=== PATIENT | female | born 1950 | race Caucasian/White ===

== ENCOUNTER 2018-10-28 09:14 | Day surgery (SDC) | payer BC ==
[~2018-10-28 09:14] MED LIST: Acetaminophen TAB* 325 MG PO PRN; Buffered Lidocaine 1% SYRIN* 1 ML/SYRINGE INTRADERM ONE
[2018-10-28] MEDS ORDERED: Midazolam* 1 MG/ML 2 ML VIAL (2 MG) ONE ×3 (10:14→10:59)
[2018-10-28 11:43] VITALS: BP 99/77
[2018-10-28] MEDS ORDERED: Povidone Iodine 5% OPTH* 30 ML BTL ONE (12:15)
[2018-10-28] MEDS ORDERED: Ketorolac 0.5% OPHTH (NF) 0.5 % 5 ML BTL ONE (12:15)
[2018-10-28] MEDS ORDERED: Proparacaine 0.5% OPHTH.SOL* 15 ML BTL ONE (12:15)
[2018-10-28] MEDS ORDERED: Neomycin/Polymy/Dex OPTH.SUSP* MAXITROL 0.1% 5 ML ONE (12:15)
[2018-10-28] MEDS ORDERED: Lidocaine 1%* 5 ML VIAL ONE (12:15)
[2018-10-28] MEDS ORDERED: Lidocaine 2% EPI 1:200000 MPF*10-20 ML VIAL ONE (12:15)
[2018-10-28] MEDS ORDERED: acetaZOLAMIDE TAB* 250 MG ONE (12:15)
[2018-10-28] MEDS ORDERED: Cyclopentolate 1% OPTH.SOL* 2 ML BTL ONE (12:15)
[2018-10-28] MEDS ORDERED: Phenylephrine 2.5% OPTH.SOL* 2 ML BTL ONE (12:15)
--- NOTE | 2018-10-28 13:17 | OP ---
DATE OF OPERATION: 10/28/2018. DATE OF : 1950. SURGEON: Tian Pena M.D. PREOPERATIVE DIAGNOSIS: Cataract right eye. POSTOPERATIVE DIAGNOSIS: Cataract right eye. OPERATIVE PROCEDURE: Extracapsular cataract extraction with intraocular lens implant right eye. PROCEDURE: The patient was brought to the operating room after being given 1/2% Alcaine with epineph rine drops in the preoperative area. The eye was prepped and draped in the usual sterile fashion. S terile drape and eyelid speculum were placed. Again, topical 1/2% Alcaine with epinephrine was given . A paracentesis incision was made at the 9 o'clock position with the No.75 blade. Clear cornea inc ision 2.2 x 2.2-mm was created at the 12 o'clock position starting at the anterior limbus using the 2 .2-mm keratome. The anterior chamber was irrigated with 0.4 mL of 1% non-preservative intracameral l idocaine and filled with DisCoVisc. A capsulorrhexis was completed using the cystotome and the Utrat a forceps. Hydrodissection was performed with balanced salt solution. The lens nucleus was removed w ith the Phacoemulsification handpiece without incident. Cortex was removed with the irrigation-aspir ation handpiece. The capsular bag was re-inflated using DisCoVisc and an SN60WF 22.5 implant was ins erted with the shooter. The irrigation-aspiration handpiece was used to remove all residual DisCoVis c. The eye was refilled with balanced salt solution and the wound checked and found to be watertight . Topical Maxitrol drops were given. [id number]/[facility] #: [id number]
== END 2018-10-28 11:36 | disposition home or self-care (01) ==
LOC: OREAST 09:14
PROVIDERS: ATTEND Specialist
DX: H25.11 Age-related nuclear cataract, right eye (principal); E03.9 Hypothyroidism, unspecified; G40.909 Epilepsy, unspecified, not intractable, without status epilepticus; F41.9 Anxiety disorder, unspecified
CPT/HCPCS: A9270-GY; J2250; V2632

== ENCOUNTER 2019-03-13 13:49 | Emergency (ER) | payer BC ==
[2019-03-13] MEDS ORDERED: Aspirin 81 mg CHEW TAB* 81 MG TAB.CHEW PO ONE (14:30)
--- NOTE | 2019-03-13 14:46 | ED ---
HPI Chest Pain - HPI Summary HPI Summary: This pt is a 68 y/o female presenting to [facility] c/o intermittent left sided chest pain since yesterday. Pt describes squeezing pain on the left side of her chest that is intermittent. She notes when the pain comes it lasts about 4 seconds and then it resolves. At onset of her chest pain pt reports she was ambulating. She states her chest pain resolved at about 23:30 last night and felt better when lying down. Pt felt like she had indigestion last night and took Tums without relief. Pt additionally reports palpitations. Denies nausea, SOB, dizziness, lightheadedness, swelling in LE. Pt has had this pain in the past but notes today it is more painful and lasts longer. Denies any past stress tests. - History of Current Complaint Chief Complaint: EDChestPainROMI Time Seen by Provider: 03/13/19 14:28 Hx Obtained From: Patient Onset/Duration: Started Days Ago - 1, Still Present Timing: Lasting Days - 1 Current Severity: Mild Pain Intensity: 2 Pain Scale Used: 0-10 Numeric Chest Pain Location: Left Anterior Chest Pain Radiates: No Character: Pressure/Squeezing - Squeezing Aggravating Factor(s): Nothing Alleviating Factor(s): Nothing Associated Signs and Symptoms: Positive: Chest Pain, Palpitations. Negative: Dizziness, Shortness of Breath, Fever, Chills, Lightheadedness, Nausea, Calf Pain/Swelling - Allergy/Home Medications Allergies/Adverse Reactions: Allergies Allergy/AdvReac Type Severity Reaction Status Date / Time lactose Allergy Severe GI Upset Verified 10/23/18 12:37 pollen extracts Allergy Severe Itching Verified 10/23/18 12:37 Sulfa (Sulfonamide Allergy Mild Unknown Verified 03/11/18 11:55 Antibiotics) Reaction Details PMH/Surg Hx/FS Hx/Imm Hx Endocrine/Hematology History: Reports: Hx Thyroid Disease - [place] thyroid, Hx Anemia - history of, not recent Denies: Hx Diabetes Cardiovascular History: Denies: Hx Hypertension, Other Cardiovascular Problems/Disorders Respiratory History: Reports: Hx Asthma - Cold weather or allergy related- rescue med Denies: Other Respiratory Problems/Disorders GI History: Reports: Other GI Disorders - [place] Denies: Hx Gastroesophageal Reflux Disease History: Denies: Hx Renal Disease, Other Problems/Disorders Musculoskeletal History: Reports: Hx Arthritis - knees, hips Denies: Other Musculoskeletal History Sensory History: Reports: Hx Cataracts - Right eye, Hx Contacts or Glasses - Glasses Denies: Hx Hearing Aid Opthamlomology History: Reports: Hx Cataracts - Right eye, Hx Contacts or Glasses - Glasses Neurological History: Reports: Hx Migraine, Hx Seizures - Left temporal lobe Epilepsy-Dr CrawfordMikw-Lcdaoqow-Udgx seizure approx 1 year ago Denies: Other Neuro Impairments/Disorders Psychiatric History: Reports: Hx Anxiety - Cancer History Cancer Type, Location and Year: SKIN CA Hx Chemotherapy: No - Surgical History Surgery Procedure, Year, and Place: PONCE, LAPAROSCOPY Hx Anesthesia Reactions: Yes - General anesthesia-difficulty being aroused and severe nausea Infectious Disease History: No Infectious Disease History: Denies: Traveled Outside the [place] in Last 30 Days - Family History Family History: Father with cataract. - Social History Alcohol Use: None Substance Use Type: Reports: None Smoking Status (MU): Never Smoked Tobacco Review of Systems Negative: Fever Positive: Palpitations, Chest Pain Negative: Shortness Of Breath Negative: Nausea Negative: Edema - in LE Neurological: Other - NEG: dizziness, lightheadedness All Other Systems Reviewed And Are Negative: Yes Physical Exam - Summary Physical Exam Summary: VITAL SIGNS: Reviewed. GENERAL: Patient is a well-developed and nourished female who is lying comfortable in the stretcher. Patient is not in any acute respiratory distress. HEAD AND FACE: No signs of trauma. No ecchymosis, hematomas or skull depressions. No sinus tenderness. EYES: PERRLA, EOMI x 2, No injected conjunctiva, no nystagmus. EARS: Hearing grossly intact. Ear canals and tympanic membranes are within normal limits. MOUTH: Oropharynx within normal limits. NECK: Supple, trachea is midline, no adenopathy, no JVD, no carotid bruit, no c- spine tenderness, neck with full ROM. CHEST: Symmetric, no tenderness at palpation LUNGS: Clear to auscultation bilaterally. No wheezing or crackles. CVS: Regular rate and rhythm, S1 and S2 present, no murmurs or gallops appreciated. ABDOMEN: Soft, non-tender. No signs of distention. No rebound no guarding, and no masses palpated. Bowel sounds are normal. EXTREMITIES: FROM in all major joints, no edema, no cyanosis or clubbing. NEURO: Alert and oriented x 3. No acute neurological deficits. Speech is normal and follows commands. SKIN: Dry and warm Triage Information Reviewed: Yes Vital Signs On Initial Exam: Initial Vitals Temp Pulse Resp BP Pulse Ox 96.3 F 83 18 173/87 98 03/13/19 13:50 03/13/19 13:50 03/13/19 13:50 03/13/19 13:50 03/13/19 13:50 Vital Signs Reviewed: Yes Diagnostics - Vital Signs Vital Signs Temp Pulse Resp BP Pulse Ox 03/13/19 14:44 98 03/13/19 13:50 96.3 F 83 18 173/87 98 - Laboratory Result Diagrams: 03/13/19 14:47 03/13/19 14:47 Lab Statement: Any lab studies that have been ordered have been reviewed, and results considered in the medical decision making process. - Radiology Chest XR Radiology Interpretation Completed By: Radiologist Summary of Radiographic Findings: IMPRESSION: No radiographic evidence for acute cardiopulmonary abnormality on this portable chest x-ray. Dr. Gomez has reviewed this report. - EKG 13:50 Cardiac Rate: NL - at 80 bpm EKG Rhythm: Sinus Rhythm Summary of EKG Findings: No ST elevations. Normal axis. Re-Evaluation - Re-Evaluation First Eval Re-Evaluation Time: 17:55 Comment: Reviewed all the lab and XR results with the pt. She will be discharged home. Chest Pain Course/Dx - Course Assessment/Plan: This pt is a 68 y/o female presenting to [facility] c/o intermittent left sided chest pain since yesterday. Pt describes squeezing pain on the left side of her chest that is intermittent. She notes when the pain comes it lasts about 4 seconds and then it resolves. At onset of her chest pain pt reports she was ambulating. She states her chest pain resolved at about 23: 30 last night and felt better when lying down. Pt felt like she had indigestion last night and took Tums without relief. Pt additionally reports palpitations. Denies nausea, SOB, dizziness, lightheadedness, swelling in LE. Pt has had this pain in the past but notes today it is more painful and lasts longer. Denies any past stress tests. Past medical history significant for anxiety, vertigo, hypothyroidism. Blood work without any significant abnormality except for magnesium 1.8, urinalysis is negative for UTI. EKG shows a normal sinus rhythm without any ST elevations. Two troponins 4 hours apart are both 0.00. The patient is asymptomatic. Therefore I have a low suspicion for an acute coronary syndrome. The heart score is equal to 2 therefore no suspicion for an acute coronary syndrome. I discussed all the findings and test results with the patient. Patient was instructed to return to the emergency room immediately if any of the symptoms return or worsen. Plan of care was discussed with the patient and understands and agrees. All questions were answered at patient satisfaction. There were no further complaints or concerns. Lung exam before discharge: CTA B/L. Good air exchange. No wheezing or crackles heard. CVS: S1 and S2 present. No murmurs appreciated. Patient is alert and oriented x 3. Patient is hemodynamically stable. Patient will be discharged home with follow up from her PCP in the next 2-3 days. - Chest Pain Differential Diagnosis/HQI/PQRI: Acute [place], ACS, Angina, CHF, Chest Wall, GI Disease, Lower Respiratory Infection - Diagnoses Provider Diagnoses: Atypical chest pain Discharge - Sign-Out/Discharge Documenting (check all that apply): Patient Departure - Discharge home Patient Received Moderate/Deep Sedation with Procedure: No - Discharge Plan Condition: Stable Disposition: HOME Patient Education Materials: Chest Pain (ED) Referrals: Alyce Dodson MD [Primary Care Provider] - Additional Instructions: FOLLOW UP WITH YOUR PRIMARY CARE PROVIDER IN 2-3 DAYS. RETURN TO THE EMERGENCY DEPARTMENT FOR ANY WORSENING OR NEW SYMPTOMS. - Billing Disposition and Condition Condition: STABLE Disposition: Home - Attestation Statements Document Initiated by Faby: Yes Documenting Scribe: Zoe Toro Provider For Whom Faby is Documenting (Include Credential): Ward Gomez MD Scribe Attestation: Zoe Lynn, scribed for Ward Gomez MD on 03/14/19 at 1837. Scribe Documentation Reviewed: Yes Provider Attestation: The documentation as recorded by the Zoe yun accurately reflects the service I personally performed and the decisions made by me, Ward Gomez MD Status of Scribe Document: Viewed
[2019-03-13 15:01] LABS: ABS Lymphocytes 0.7 10^3/ul (1.0-4.8); ABS Monocytes 0.6 10^3/ul (0-0.8); ABS Neutrophils 4.2 10^3/ul (1.5-7.7); Eosinophil % 0.6 %; Hematocrit 42 % (35-47); Hemoglobin 14.4 g/dL (12.0-16.0); Lymphocyte % 12.8 %; Mean Corpuscular HGB Conc 34 g/dL (31-36); Mean Corpuscular Hemoglobin 30 pg (27-31); Mean Corpuscular Volume 88 fL (80-97); Mean Platelet Volume 7.8 fL (7.4-10.4); Platelet Count 180 10^3/uL (150-450); Red Blood Count 4.81 10^6 /uL (3.70-4.87); Red Cell Distribution Width 14 % (10.5-15); White Blood Count 5.6 10^3/uL (3.5-10.8)
[2019-03-13 15:15] LABS: Activated Partial Thrombo Time 35.5 seconds (26.0-38.0); INR 0.93 (0.82-1.09)
[2019-03-13 15:20] LABS: Albumin 4.4 g/dL (3.2-5.2); Albumin/Globulin Ratio 1.6 (1-3); BUN/Creatinine Ratio 12.5 (8-20); Calcium 9.8 mg/dL (8.6-10.3); EGFR African American 85.8 (>60); EGFR Non-African American 70.9 (>60); Globulin 2.8 g/dL (2-4); Magnesium 1.8 mg/dL (1.9-2.7); Potassium 4.2 mmol/L (3.5-5.0); Total Bilirubin 0.5 mg/dL (0.2-1.0); Total Protein 7.2 g/dL (6.4-8.9)
[2019-03-13 15:22] LABS: CKMB ng/mL 0.8 ng/mL (0.6-6.3)
[2019-03-13 15:24] LABS: Urine Appearance Cloudy; Urine Bacteria 1+ (Absent); Urine Bilirubin Negative (Negative); Urine Blood 1+ (Negative); Urine Color Yellow; Urine Glucose Negative (Negative); Urine Ketones Trace (Negative); Urine Nitrite Negative (Negative); Urine Protein Negative (Negative); Urine Red Blood Cell Trace(0-2/hpf) (Absent); Urine Specific Gravity 1.009 (1.010-1.030); Urine Squamous Epithelial Cell Present (Absent); Urine Urobilinogen Negative (Negative); Urine White Blood Cell Trace(0-5/hpf) (Absent)
[2019-03-13] MEDS ORDERED: Magnesium Oxide TAB* 400 MG PO ONE (16:00)
[2019-03-13 16:16] LABS: TSH (Thyroid Stimulating Horm) 2.34 mcIU/mL (0.34-5.60)
[2019-03-13 18:00] VITALS: BP 152/76
== END 2019-03-13 18:00 | disposition home or self-care (01) ==
LOC: ED 13:49
DX: R07.89 Other chest pain (principal); R94.31 Abnormal electrocardiogram [ECG] [EKG]; E07.9 Disorder of thyroid, unspecified; J45.909 Unspecified asthma, uncomplicated; F41.9 Anxiety disorder, unspecified; Z85.828 Personal history of other malignant neoplasm of skin; Z91.040 Latex allergy status; Z88.2 Allergy status to sulfonamides
CPT/HCPCS: 36415; 71045; 80053; 81003; 81015; 82550; 82553; 83605; 83735; 83880; 84443; 84484; 85025; 85610; 85730; 87086; 93005; 99284; A9270-GY

== ENCOUNTER 2019-10-27 10:16 | Day surgery (SDC) | payer BC ==
[2019-10-27] MEDS ORDERED: Midazolam* 1 MG/ML 2 ML VIAL (2 MG) ONE ×2 (12:01→12:30)
[2019-10-27 13:24] VITALS: BP 120/68
--- NOTE | 2019-10-27 13:25 | OP ---
DATE OF OPERATION: 10/27/2019. DATE OF : 1950. SURGEON: Tian Pena M.D. PREOPERATIVE DIAGNOSIS: Cataract left eye. POSTOPERATIVE DIAGNOSIS: Cataract left eye. OPERATIVE PROCEDURE: Extracapsular cataract extraction with intraocular lens implant left eye. PROCEDURE: The patient was brought to the operating room after being given 1/2% Alcaine with epineph rine drops in the preoperative area. The eye was prepped and draped in the usual sterile fashion. S terile drape and eyelid speculum were placed. Again, topical 1/2% Alcaine with epinephrine was given . A paracentesis incision was made at the 3 o'clock position with the No.75 blade. Clear cornea inc ision 2.2 x 2.2-mm was created at the 6 o'clock position starting at the anterior limbus using the 2. 2-mm keratome. The anterior chamber was irrigated with 0.4 mL of 1% non-preservative intracameral li docaine and filled with DisCoVisc. A capsulorrhexis was completed using the cystotome and the Utrata forceps. Hydrodissection was performed with balanced salt solution. The lens nucleus was removed wi th the Phacoemulsification handpiece without incident. Cortex was removed with the irrigation-aspira tion handpiece. The capsular bag was re-inflated using DisCoVisc and an SN60WF 23.5 implant was inse rted with the shooter. The irrigation-aspiration handpiece was used to remove all residual DisCoVisc . The eye was refilled with balanced salt solution and the wound checked and found to be watertight. Topical Maxitrol drops were given. [id number]/[facility] #: [id number]
[2019-10-27] MEDS ORDERED: Lidocaine 1% MPF ** 5 ML VIAL ONE (15:07)
[2019-10-27] MEDS ORDERED: Cyclopentolate 1% OPTH.SOL* 2 ML BTL ONE (15:07)
[2019-10-27] MEDS ORDERED: Povidone Iodine 5% OPTH* 30 ML BTL ONE (15:07)
[2019-10-27] MEDS ORDERED: Proparacaine 0.5% OPHTH.SOL* 15 ML BTL ONE (15:07)
[2019-10-27] MEDS ORDERED: Lidocaine 2% w/ EPI 1:200,000* 20 ML SDV VIAL ONE (15:07)
[2019-10-27] MEDS ORDERED: Neomycin/Polymy/Dex OPTH.SUSP* MAXITROL 0.1% 5 ML ONE (15:07)
[2019-10-27] MEDS ORDERED: Phenylephrine OPHTH SOL 2.5%* 2 ML ONE (15:07)
[2019-10-27] MEDS ORDERED: Ketorolac 0.5% OPHTH (NF) 0.5 % 5 ML BTL ONE (15:07)
== END 2019-10-27 13:11 | disposition home or self-care (01) ==
LOC: OREAST 10:16
PROVIDERS: ATTEND Specialist
DX: H25.12 Age-related nuclear cataract, left eye (principal); H43.813 Vitreous degeneration, bilateral; E03.9 Hypothyroidism, unspecified; G40.89 Other seizures; F41.9 Anxiety disorder, unspecified
CPT/HCPCS: A9270-GY; J2250; V2632